=== PATIENT | female | born 1970 | race Caucasian/White ===

== ENCOUNTER 2022-10-29 10:55 | Day surgery (SDC) | payer OTHER ==
--- NOTE | 2022-10-29 09:00 | ANESTHESIA ---
Pre-Anesthesia VS, & Labs - Diagnosis screening - Procedure colonoscopy - NPO >8 hours Last Fluid Intake: am prep - Is Patient ?: No - Lab Results Lab results reviewed: Yes Home Medications and Allergies Home Medications: Ambulatory Orders No Known Home Medications 10/28/22 No Known Home Medications 10/28/22 Allergies/Adverse Reactions: Allergies Allergy/AdvReac Type Severity Reaction Status Date / Time No Known Drug Allergies Allergy Verified 10/28/22 13:08 Anes History & Medical History - Anesthetic History Anesthesia Complications: reports: No previous complications Family history of Anesthesia Complications: Denies - Medical History Cardiovascular: reports: None Pulmonary: reports: None Gastrointestinal: reports: None Urinary: reports: None Musculoskeletal: reports: None Endocrine/Autoimmune: reports: None Skin: reports: None Exam General: Alert, Oriented x3, Cooperative Dental: WNL Mouth Openin Fingerbreadth Neck Mobility: Normal Mallampati classification: II Thyromental Distance: 4-6 cm Respiratory: Lungs clear, Normal breath sounds, No respiratory distress Cardiovascular: Regular rate Neurological: Normal speech Mental/Cognitive Status: Alert/Oriented X3, Normal for patient Plan Anesthesia Type: Total IV Consent for Procedure(s) Verified and Reviewed: Yes Code Status: Attempt Resuscitation ASA classification: 2-Mild systemic disease Is this case an emergency?: No
[~2022-10-29 10:55] MED LIST: PROPOFOL 500 MG/50 ML 500 MG/50 ML VIAL ONE
[2022-10-29] MEDS ORDERED: MIDAZOLAM 2 MG/2 ML VIAL ONE (10:58)
[2022-10-29] MEDS ORDERED: LACTATED RINGERS 1,000 ML IV ONE (11:01)
--- NOTE | 2022-10-29 11:49 | HISTORY & PHYSICAL EXAMINATION ---
Chief Complaint - Chief Complaint Chief Complaint: here for colon cancer screening History of Present Illness - History Obtained From Records Reviewed: yes History obtained from: pt Exam Limitations: none - History of Present Illness HPI Comment/Other: no colon problems or family hx colon cancer minor hemorrhoid troubles after 3 pregnancies. History - Past Medical History Cardiovascular: reports: None Respiratory: reports: None Endocrine/Autoimmune: reports: None GI: reports: None : reports: None HEENT: reports: None Psych: reports: None Musculoskeletal: reports: None Derm: reports: None MRSA Hx?: No Meds/Allgy - Home Medications Home Medications: Ambulatory Orders Medication Instructions Recorded Confirmed No Known Home Medications 10/28/22 10/28/22 - Allergies Allergies/Adverse Reactions: Allergies Allergy/AdvReac Type Severity Reaction Status Date / Time No Known Drug Allergies Allergy Verified 10/28/22 13:08 Review of Systems - Other Findings Other Findings: 10 pt ros as above otherwise unremarkable Exam - Vital Signs Reviewed Vital Signs: Yes Vital Signs: Vital Signs x48h Temp Pulse Resp BP Pulse Ox 10/29/22 11:02 36.3 C L 68 12 141/96 H 100 - Physical Exam General Appearance: positive: No acute distress, Alert Eyes Bilateral: positive: PERRL, EOMI ENT: positive: No signs of dehydration Neck: positive: No JVD Respiratory: positive: No respiratory distress, Breath sounds nml Cardiovascular: positive: Regular rate & rhythm Abdomen: positive: Non-tender, No distention Neurologic/Psychiatric: positive: Oriented x3 Conclusion/Plan - Problem List (1) Colon cancer screening Conclusion/Plan: plan colonoscopy. parq held and consent obtained - Lab Results Lab results reviewed: Yes
[2022-10-29] MEDS ORDERED: LACTATED RINGERS 200 ML IV ONE (12:34)
[2022-10-29 13:05] VITALS: BP 111/72
--- NOTE | 2022-10-29 14:08 | ANESTHESIA POST OP EVALUATION ---
Anesthesia Post Eval - Post Anesthesia Eval Vitals: Last Vital Signs Temp 36.8 C 10/29/22 13:04 Pulse 62 10/29/22 13:04 Resp 18 10/29/22 13:04 BP 111/72 10/29/22 13:04 Pulse Ox 99 10/29/22 13:04 O2 Flow Rate CV Function Including HR & BP: Stable Pain Control: Satisfactory Nausea & Vomiting: Negative Mental Status: Baseline Respiratory Status: Airway Patent Hydration Status: Satisfactory Anesthesia Complications: None
== END 2022-10-29 10:56 | disposition home or self-care (01) ==
LOC: SDS 10:55
PROVIDERS: ATTEND Surgery
DX: Z12.11 Encounter for screening for malignant neoplasm of colon (principal)
CPT/HCPCS: 45378; J7120

== ENCOUNTER 2023-06-30 11:00 | Outpatient (CLI) | payer OTHER ==
--- NOTE | 2023-06-30 13:58 | XRAY Report ---
PROCEDURE: Foot 3 View RT INDICATIONS: PAIN IN RIGHT FOOT TECHNIQUE: 3 views of the foot were acquired. COMPARISON: None. FINDINGS: Bones: No fractures or dislocations. No suspicious bony lesions. Mild hallux valgus. Soft tissues: No suspicious soft tissue calcifications or masses. IMPRESSION: Mild hallux valgus. Reviewed by: Sanket Porter on 06/30/2023 1:57 PM PDT Approved by: Sanket Porter on 06/30/2023 1:57 PM PDT Station ID: [id number]
== END 2023-06-30 11:01 | disposition home or self-care (01) ==
LOC: DI 11:00
PROVIDERS: ATTEND Physician Assistant
DX: M20.11 Hallux valgus (acquired), right foot (principal)

== ENCOUNTER 2023-08-20 11:04 | Outpatient (CLI) | payer OTHER ==
--- NOTE | 2023-08-27 14:31 | Mammography Report ---
BILATERAL DIGITAL SCREENING MAMMOGRAM 3D/2D WITH EXAGGERATED CC: 08/20/2023 CLINICAL: Routine screening. Comparison is made to exam dated: 12/08/2010 mammogram - [facility]. Both breasts are heterogeneously dense, which may obscure small masses (category c / 51-75% glandular tissue). There is a round low density focal asymmetry with a circumscribed margin and punctate calcifications in the left breast at 4 o'clock middle depth. No other significant masses, calcifications, or other findings are seen in either breast. IMPRESSION: INCOMPLETE: NEEDS ADDITIONAL IMAGING EVALUATION The round low density focal asymmetry in the left breast is indeterminate. Additional views with pos sible ultrasound are recommended. Based on the Tyrer Cuzick model (a risk assessment model) the patients lifetime risk is 12.6% and he r 10 year risk is 3.7%. According to the ACR, ACS, and NCCN guidelines, an annual breast MRI exam aristeo ng with mammogram is recommended if the patients lifetime risk is 20% or greater. This exam was interpreted at Station ID: [id number]. NOTE: For mammograms, a report in lay terms will be sent to the patient. Approximately 15% of breast malignancies will not be visualized mammographically. In the management of a palpable breast mass, a negative mammogram must not discourage biopsy of a clinically suspicious lesion. Electronically Signed By: Yadira armijo/huyen:08/26/2023 16:48:58 ACR BI-RADS Category 0: Incomplete 3340F PARENCHYMAL PATTERN: (D) - The breast(s) demonstrate(s) heterogeneously dense fibroglandular gladys hutchins. BI-RADS CATEGORY: (0) - 0 Mammo and [place] [id number] Immediate follow-up LATERALITY: (B)
== END 2023-08-20 11:05 | disposition home or self-care (01) ==
LOC: DI 11:04
PROVIDERS: ATTEND Physician Assistant
DX: Z12.31 Encounter for screening mammogram for malignant neoplasm of breast (principal); R92.333 Mammographic heterogeneous density, bilateral breasts; R92.8 Other abnormal and inconclusive findings on diagnostic imaging of breast; R92.1 Mammographic calcification found on diagnostic imaging of breast

== ENCOUNTER 2023-10-19 10:14 | Outpatient (CLI) | payer OTHER ==
--- NOTE | 2023-10-19 12:21 | Ultrasound Report ---
LIMITED ULTRASOUND OF LEFT BREAST: 10/19/2023 CLINICAL: Patient returns today to evaluate a focal asymmetry in the left breast. Comparison is made to exams dated: 10/19/2023 mammogram, 08/20/2023 mammogram - [facility], and 12/08/2010 mammogram - [facility]. Color flow and continuous wave Doppler ultrasound of the left breast 2 o'clock region were performed. There is a 1 cm x 0.7 cm x 0.4 cm oval mass with a circumscribed margin in the left breast at 2 o'jair ck middle depth 2 cm from the nipple. This oval mass is hypoechoic with a well-defined boundary. Th is correlates with mammography findings. There are related micro calcifications. Color flow imaging demonstrates that there is vascularity present. IMPRESSION: PROBABLY BENIGN The 1 cm circumscribed mass in the left breast most likely is a fibroadenoma and is probably benign. A follow-up ultrasound in 6 months is recommended to demonstrate stability. Exam findings were conveyed to the patient. This exam was interpreted at Station ID: [id number]. Electronically Signed By: Kingston Goncalves M.D. slc/:10/19/2023 11:34:52 Ultrasound BI-RADS: 3 Probably benign BI-RADS CATEGORY: (3) - 3 Ultrasound [id number] 6 month follow-up LATERALITY: (B)
--- NOTE | 2023-10-19 12:21 | Mammography Report ---
UNILATERAL LEFT DIGITAL DIAGNOSTIC MAMMOGRAM 3D/2D WITH SPOT COMPRESSION: 10/19/2023 CLINICAL: Patient returns today to evaluate a focal asymmetry in the left breast. Comparison is made to exams dated: 08/20/2023 mammogram - [facility] and 12/08/2010 mammogram - [facility]. The left breast is heterogeneously dense, which may obscure small masses (category c / 51-75% glandul ar tissue). There is a round focal asymmetry with a circumscribed margin and punctate calcifications in the left breast at 2 o'clock middle depth. No other significant masses or calcifications are seen in the breast. IMPRESSION: INCOMPLETE: NEEDS ADDITIONAL IMAGING EVALUATION The round focal asymmetry in the left breast is indeterminate. A targeted ultrasound is recommended and will immediately follow. Based on the Tyrer Cuzick model (a risk assessment model) the patients lifetime risk is 12.6% and he r 10 year risk is 3.7%. According to the ACR, ACS, and NCCN guidelines, an annual breast MRI exam aristeo ng with mammogram is recommended if the patients lifetime risk is 20% or greater. This exam was interpreted at Station ID: [id number]. NOTE: For mammograms, a report in lay terms will be sent to the patient. Approximately 15% of breast malignancies will not be visualized mammographically. In the management of a palpable breast mass, a negative mammogram must not discourage biopsy of a clinically suspicious lesion. Electronically Signed By: Kingston Goncalves M.D. slc/:10/19/2023 11:08:24 ACR BI-RADS Category 0: Incomplete 3340F PARENCHYMAL PATTERN: (D) - The breast(s) demonstrate(s) heterogeneously dense fibroglandular partha hutchins. BI-RADS CATEGORY: (0) - 0 Ultrasound [id number] Immediate follow-up LATERALITY: (B)
== END 2023-10-19 10:15 | disposition home or self-care (01) ==
LOC: DI 10:14
PROVIDERS: ATTEND Physician Assistant
DX: N63.21 Unspecified lump in the left breast, upper outer quadrant (principal); R92.332 Mammographic heterogeneous density, left breast

== ENCOUNTER 2024-07-04 08:46 | Outpatient (CLI) | payer OTHER ==
--- NOTE | 2024-07-05 13:42 | Ultrasound Report ---
LIMITED ULTRASOUND OF LEFT BREAST: 07/04/2024 CLINICAL: Patient returns for a 6 month follow up of the left breast. Comparison is made to exams dated: 10/19/2023 ultrasound, 10/19/2023 mammogram, 08/20/2023 mammogram - [facility], and 12/08/2010 mammogram - [facility]. Color flow ultrasound of the left breast 2 o'clock region was performed. Bright scale images of the r eal-time examination were reviewed. There is a 1 cm x 0.8 cm x 0.4 cm oval mass with a circumscribed margin in the left breast at 2 o'jair ck, 2 cm from the nipple. This oval mass is hypoechoic. Color flow imaging demonstrates that there is no vascularity present. This finding is stable since 10/19/2023. IMPRESSION: PROBABLY BENIGN Stable 1 cm oval mass at 2 o'clock, stable since October 2023. Finding is probably benign. Recommend follow-up mammogram and ultrasound in 6 months to demonstrate 1 year stability. Patient will be due for bilateral mammogram at that time. Findings and recommendations were conveyed to the patient during today's evaluation. This exam was interpreted at Station ID: [id number]. Electronically Signed By: Mya Carcamo M.D., Ph.D. eb/:07/04/2024 09:25:10 Ultrasound BI-RADS: 3 Probably benign BI-RADS CATEGORY: (3) - 3 Mammo and US [id number] 6 month follow-up LATERALITY: (B)
== END 2024-07-04 08:47 | disposition home or self-care (01) ==
LOC: DI 08:46
PROVIDERS: ATTEND Internal Medicine
DX: N63.21 Unspecified lump in the left breast, upper outer quadrant (principal); R92.8 Other abnormal and inconclusive findings on diagnostic imaging of breast